=== PATIENT | female | born 1950 | race American Indian/Alaskan Native ===

== ENCOUNTER 2016-05-06 13:14 | Inpatient (IN) | payer MEDICARE ==
[2016-05-06 14:22] LABS: Basophils % (Auto) 0.4 % (0.0-1.8); Eosinophils % (Auto) 0.5 % (0.0-4.3); Hematocrit 31.5 % (30.3-42.9); Hemoglobin 10.7 gm/dl (10.1-14.3); Mean Corpuscular HGB Conc 34 % (30-34); Mean Corpuscular Hemoglobin 28 pg (28-32); Mean Corpuscular Volume 83 fl (79-97); Platelet Count 313 K/mm3 (140-440); Red Blood Count 3.81 M/mm3 (3.65-5.03); Red Cell Distribution Width 14.7 % (13.2-15.2); White Blood Count 11.7 K/mm3 (4.5-11.0)
[2016-05-06 14:39] LABS: Anion Gap 22 mmol/L; BUN/Creatinine Ratio 17.77; Blood Urea Nitrogen 16 mg/dL (7-17); Calcium 9.2 mg/dL (8.4-10.2); Carbon Dioxide 19 mmol/L (22-30); Chloride 97.2 mmol/L (98-107); Glucose 101 mg/dL (65-100); Potassium 3.5 mmol/L (3.6-5.0); Sodium 135 mmol/L (137-145)
[2016-05-06 15:19] LABS: Cholesterol 207 mg/dL (50-199); HDL Cholesterol 78 mg/dL (40-59); LDL Cholesterol,Direct 113 mg/dL (50-130); Triglycerides 82 mg/dL (2-149)
[2016-05-06] MEDS ORDERED: ASPIRIN PO ONE (15:23)
--- NOTE | 2016-05-06 16:02 | Emergency Department Report ---
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 According to her she was out for approximately 30 seconds. Patient states she had a tightness in her chest and felt lightheaded prior to and just after her syncopal episode. Patient states the chest pain improved in route to the hospital and has since resolved. Patient did take her blood pressure medicine this morning. Patient states she had the flu several months ago and occasionally has congested nose but denies fever, nausea, vomiting, diarrhea or cough patient states over the last several days she's had exertional chest tightness patient also states she's been taking shots for her weight loss of Forskolin. Mode of arrival: [EMS] Source: [Patient] and patient's Began: Occurred prior to admission Duration: Approximately 30 seconds Context: See above Quality: See above Severity: Currently 0 out of 10 Improved with: See above Worsened with: See above Associated signs and symptoms: See above. No recent surgery or travel ED Past Medical Hx - Past Medical History Previous Medical History?: Yes Hx Hypertension: Yes - Surgical History Past Surgical History?: No - Social History Smoking Status: Never Smoker Substance Use Type: None - Medications Home Medications: Home Medications Medication Instructions Recorded Confirmed Last Taken Type Losartan/Hydrochlorothiazide 1 each PO QDAY 05/06/16 05/06/16 Unknown History [Losartan-Hctz 100-25 mg Tab] amLODIPine [Norvasc] 10 mg PO DAILY 05/06/16 05/06/16 Unknown History ED Review of Systems ROS: Stated complaint: SYNCOPE Other details as noted in HPI ROS Constitutional: No fever ENT: No uri symptoms Cardiovascular: chest pain Respiratory: No sob or cough GI: No nausea vomiting or diarrhea : No dysuria frequency or urgency, Skin: No rash Neuro: No focal weakness or numbness Psych: No depression Aditya/lymph: No edema Physical Exam - Physical Exam Vital Signs: Vital Signs 05/06/16 05/06/16 05/06/16 13:33 13:40 14:00 Temperature 98.1 F Pulse Rate 73 79 71 Respiratory 13 16 10 L Rate Blood Pressure 107/66 107/62 111/65 O2 Sat by Pulse 99 Oximetry 05/06/16 05/06/16 14:30 14:40 Temperature Pulse Rate 78 Respiratory 9 L 16 Rate Blood Pressure 112/70 O2 Sat by Pulse Oximetry Physical Exam: GENERAL: The patient is well-developed well-nourished . HEENT: Normocephalic. Atraumatic. Extraocular motions are intact. Patient has moist mucous membranes. NECK: Supple. No meningitic signs are noted. There is no adenopathy noted. CHEST/LUNGS: Clear to auscultation. There is no respiratory distress noted. HEART/CARDIOVASCULAR: Regular. There is no tachycardia. There is no gallop rub or murmur. ABDOMEN: Abdomen is soft, nontender. Patient has normal bowel sounds. There is no abdominal distention. SKIN: There is no rash. There is no edema. There is no diaphoresis. NEURO: The patient is awake, alert, and oriented. The patient is cooperative. The patient has no focal neurologic deficits. The patient has normal speech. MUSCULOSKELETAL: There is no tenderness or deformity. There is no limitation range of motion. There is no evidence of acute injury. ED Course Vital Signs 05/06/16 05/06/16 05/06/16 13:33 13:40 14:00 Temperature 98.1 F Pulse Rate 73 79 71 Respiratory 13 16 10 L Rate Blood Pressure 107/66 107/62 111/65 O2 Sat by Pulse 99 Oximetry 05/06/16 05/06/16 14:30 14:40 Temperature Pulse Rate 78 Respiratory 9 L 16 Rate Blood Pressure 112/70 O2 Sat by Pulse Oximetry ED Medical Decision Making - Lab Data Result diagrams: 05/06/16 14:06 05/06/16 14:06 Laboratory Tests 05/06/16 14:06 Calcium 9.2 Troponin T 0.048 H Triglycerides 82 Cholesterol 207 H LDL Cholesterol Direct 113 HDL Cholesterol 78 H Cholesterol/HDL Ratio 2.65 Laboratory Tests 05/06/16 15:41 D-Dimer 191.14 - EKG Data -: EKG Interpreted by Me (inferior Q waves and poor initial anterior forces) EKG shows normal: sinus rhythm Rate: normal (74) - EKG Data When compared to previous EKG there are: previous EKG unavailable - Radiology Data interpreted by me: Chest x-ray shows no acute process Critical care attestation.: If time is entered above; I have spent that time in minutes in the direct care of this critically ill patient, excluding procedure time. ED Disposition Clinical Impression: Syncope Qualifiers: Syncope type: unspecified Qualified Code(s): R55 - Syncope and collapse Chest pain Qualifiers: Chest pain type: unspecified Qualified Code(s): R07.9 - Chest pain, unspecified Disposition: OP ADMITTED IP TO THIS HOSP Is pt being admited?: Yes Does the pt Need Aspirin: Yes Condition: Fair Instructions: Syncope (ED), Chest Pain (ED) Referrals: PRIMARY CARE, [Primary Care Provider] - 3-5 Days Time of Disposition: 16:05 (admit to the hospitalist)
[2016-05-06] MEDS ORDERED: DULCOLAX PR PRN (16:34)
[2016-05-06] MEDS ORDERED: MILK OF MAGNESIA PO PRN (16:34)
[2016-05-06] MEDS ORDERED: TYLENOL PO PRN (16:34)
[2016-05-06] MEDS ORDERED: MORPHINE IV PRN (16:34)
[2016-05-06] MEDS ORDERED: ZOFRAN IV PRN (16:34)
[2016-05-06] MEDS ORDERED: NON-FORMULARY (Losartan/Hydrochlorothiazide [Losartan-Hctz 100-25 Mg Tab] 1 EACH) PO SCH (16:45)
--- NOTE | 2016-05-06 16:48 | History and Physical Report ---
History of Present Illness Date of examination: 05/06/16 History of present illness: 65-year-old female with history of hypertension presents to the hospital with chest pain which she stated started while in [employer]. Patient described chest pain as a pressure sensation about a 6 out of 10. Pain would come and go no alleviating or aggravating factors. Patient denied any palpitation or shortness of breath. No fever no chills. No nausea vomiting. No numbness in the left arm. At the time of exam patient was chest pain-free. Patient denied any syncopal episode Past History Past Medical History: hypertension Medications and Allergies Allergies Allergy/AdvReac Type Severity Reaction Status Date / Time No Known Allergies Allergy Unverified 05/06/16 13:40 Home Medications Medication Instructions Recorded Confirmed Last Taken Type Losartan/Hydrochlorothiazide 1 each PO QDAY 05/06/16 05/06/16 Unknown History [Losartan-Hctz 100-25 mg Tab] amLODIPine [Norvasc] 10 mg PO DAILY 05/06/16 05/06/16 Unknown History Active Meds: Active Medications Hydrochlorothiazide (Hctz) 25 mg PO QDAY BRUNA Losartan Potassium (Cozaar) 100 mg PO QDAY [facility] Review of Systems Cardiovascular: chest pain Exam - Constitutional Vitals: Temp Pulse Resp BP Pulse Ox 98.1 F 78 16 112/70 99 05/06/16 13:40 05/06/16 14:30 05/06/16 14:40 05/06/16 14:30 05/06/16 13:40 General appearance: Present: no acute distress - EENT Eyes: Present: PERRL, EOM intact ENT: hearing intact, clear oral mucosa, dentition normal - Neck Neck: Present: supple, normal ROM - Respiratory Respiratory effort: normal Respiratory: bilateral: CTA - Cardiovascular Rhythm: regular Heart Sounds: Present: S1 & S2 - Extremities Extremities: no ischemia, No edema - Abdominal General gastrointestinal: Present: soft, non-tender, non-distended, normal bowel sounds - Musculoskeletal Musculoskeletal: strength equal bilaterally - Psychiatric Psychiatric: appropriate mood/affect, intact judgment & insight - Neurologic Neurologic: CNII-XII intact, moves all extremities Results - Labs CBC & Chem 7: 05/06/16 14:06 05/06/16 14:06 Labs: Laboratory Last Values WBC 11.7 K/mm3 (4.5-11.0) H 05/06/16 14:06 RBC 3.81 M/mm3 (3.65-5.03) 05/06/16 14:06 Hgb 10.7 gm/dl (10.1-14.3) 05/06/16 14:06 Hct 31.5 % (30.3-42.9) 05/06/16 14:06 MCV 83 fl (79-97) 05/06/16 14:06 MCH 28 pg (28-32) 05/06/16 14:06 MCHC 34 % (30-34) 05/06/16 14:06 RDW 14.7 % (13.2-15.2) 05/06/16 14:06 Plt Count 313 K/mm3 (140-440) 05/06/16 14:06 Lymph % (Auto) 19.1 % (13.4-35.0) 05/06/16 14:06 Mineral % (Auto) 5.6 % (0.0-7.3) 05/06/16 14:06 Eos % (Auto) 0.5 % (0.0-4.3) 05/06/16 14:06 Baso % (Auto) 0.4 % (0.0-1.8) 05/06/16 14:06 Lymph # 2.2 K/mm3 (1.2-5.4) 05/06/16 14:06 Mineral # 0.7 K/mm3 (0.0-0.8) 05/06/16 14:06 Eos # 0.1 K/mm3 (0.0-0.4) 05/06/16 14:06 Baso # 0.0 K/mm3 (0.0-0.1) 05/06/16 14:06 Seg Neutrophils % 74.4 % (40.0-70.0) H 05/06/16 14:06 Seg Neutrophils # 8.7 K/mm3 (1.8-7.7) H 05/06/16 14:06 D-Dimer 191.14 ng/mlDDU (0-234) 05/06/16 15:41 Sodium 135 mmol/L (137-145) L 05/06/16 14:06 Potassium 3.5 mmol/L (3.6-5.0) L 05/06/16 14:06 Chloride 97.2 mmol/L (98-107) L 05/06/16 14:06 Carbon Dioxide 19 mmol/L (22-30) L 05/06/16 14:06 Anion Gap 22 mmol/L 05/06/16 14:06 BUN 16 mg/dL (7-17) 05/06/16 14:06 Creatinine 0.9 mg/dL (0.7-1.2) 05/06/16 14:06 Estimated GFR > 60 ml/min 05/06/16 14:06 BUN/Creatinine Ratio 17.77 % 05/06/16 14:06 Glucose 101 mg/dL (65-100) H 05/06/16 14:06 Calcium 9.2 mg/dL (8.4-10.2) 05/06/16 14:06 Troponin T 0.048 ng/mL (0.00-0.029) H 05/06/16 14:06 Triglycerides 82 mg/dL (2-149) 05/06/16 14:06 Cholesterol 207 mg/dL (50-199) H 05/06/16 14:06 LDL Cholesterol Direct 113 mg/dL (50-130) 05/06/16 14:06 HDL Cholesterol 78 mg/dL (40-59) H 05/06/16 14:06 Cholesterol/HDL Ratio 2.65 % 05/06/16 14:06 Assessment and Plan - Patient Problems (1) Hypertension Current Visit: Yes Status: Acute Qualifiers: Hypertension type: H Plan to address problem: Patient is continued on hypertensive meds. Blood pressure is well controlled (2) Chest pain Current Visit: Yes Status: Acute Qualifiers: Chest pain type: unspecified Qualified Code(s): R07.9 - Chest pain, unspecified Plan to address problem: Patient will be admitted to telemetry for chest pain with elevated troponin. We 'll start on heparin drip, beta blockers, aspirin, will get 2-D echo. We'll get cardiology consultation. We'll continue to monitor on the monitoring analyst. Patient is chest pain-free at the time of exam. We'll get Lexiscan stress test
[2016-05-06] MEDS: COZAAR PO SCH (16:51)
[2016-05-06] MEDS: HCTZ PO SCH (16:51)
[2016-05-06] MEDS ORDERED: NACL 0.9% 1000 ML 1,000 ML IV SCH (17:00)
[2016-05-06] MEDS ORDERED: HEPARIN/ 0.45% NACL-25,000 UNIT/500 ML 25,000 UNIT/500 ML BAG IV SCH (17:00)
[2016-05-06] MEDS ORDERED: HEPARIN 10,000 UNITS/10 ML IV ONE (17:25)
[2016-05-06 17:37] LABS: INR 0.97 (0.87-1.13)
[2016-05-06] MEDS: HEPARIN/ 0.45% NACL-25,000 UNIT/500 ML 25,000 UNIT/500 ML BAG IV SCH (17:42)
[2016-05-06 21:08] LABS: Hematocrit 36.2 % (30.3-42.9)
[2016-05-06 21:16] LABS: Creatine Kinase MB 3.5 ng/mL (0.0-4.0)
[2016-05-06 21:36] LABS: Partial Thromboplastin Time < 20.0 Sec. (24.2-36.6)
[2016-05-06 22:14] LABS: INR TNR (0.87-1.13)
[2016-05-06] MEDS: LOPRESSOR PO SCH (22:58)
[2016-05-06 23:45] LABS: Creatine Kinase MB 3.3 ng/mL (0.0-4.0)
[2016-05-06 23:50] LABS: INR 1.04 (0.87-1.13)
[2016-05-06 23:56] LABS: Partial Thromboplastin Time 81.1 Sec. (24.2-36.6)
[2016-05-07 05:30] LABS: Basophils % (Auto) 0.6 % (0.0-1.8); Eosinophils % (Auto) 2.6 % (0.0-4.3); Hematocrit 32.3 % (30.3-42.9); Hemoglobin 11.2 gm/dl (10.1-14.3); Mean Corpuscular HGB Conc 35 % (30-34); Mean Corpuscular Hemoglobin 29 pg (28-32); Mean Corpuscular Volume 83 fl (79-97); Platelet Count 337 K/mm3 (140-440); Red Blood Count 3.87 M/mm3 (3.65-5.03); Red Cell Distribution Width 14.7 % (13.2-15.2); White Blood Count 9.2 K/mm3 (4.5-11.0)
[2016-05-07 05:43] LABS: INR 1.06 (0.87-1.13)
[2016-05-07 06:01] LABS: Alanine Aminotransferase 10 units/L (7-56); Albumin 3.9 g/dL (3.9-5); Albumin/Globulin Ratio 1.4 %; Alkaline Phosphatase 58 units/L (35-129); BUN/Creatinine Ratio 21.42; Bilirubin,Total 0.7 mg/dL (0.1-1.2); Blood Urea Nitrogen 15 mg/dL (7-17); Calcium 9.1 mg/dL (8.4-10.2); Carbon Dioxide 26 mmol/L (22-30); Chloride 99.4 mmol/L (98-107); Glucose 100 mg/dL (65-100); Potassium 3.5 mmol/L (3.6-5.0); Sodium 140 mmol/L (137-145); Total Protein 6.7 g/dL (6.3-8.2)
[2016-05-07 06:03] LABS: Anion Gap 18 mmol/L
--- NOTE | 2016-05-07 07:37 | XRay Report ---
AP chest History: Shortness of breath. Findings: No comparison. Minor linear scarring or atelectasis is identified at the left lung base. Otherwise, the lungs are clear. No pleural effusion or pneumothorax. Normal heart and mediastinal structures. Normal bony thorax. Impression: No acute cardiopulmonary process identified.
[2016-05-07] MEDS ORDERED: LEXISCAN IV ONE (08:56)
[2016-05-07] MEDS: LOPRESSOR PO SCH ×2 (10:00→21:33)
[2016-05-07] MEDS: HCTZ PO SCH (10:00)
[2016-05-07] MEDS: COZAAR PO SCH (10:00)
[2016-05-07] MEDS ORDERED: ASPIRIN PO SCH (10:00)
--- NOTE | 2016-05-07 12:17 | Admit Criteria Form ---
Admission Criteria Documentation: CHEST PAIN Clinical Indications for Admission to Inpatient Care (Place 'X' for any and all applicable criteria): Admission is indicated for chest pain and ANY ONE of the following(1)(2)(3)(4)(5 ): [X]I. Angina with acute coronary syndrome (Also use Myocardial Infarction or Angina guideline) [ ]II. Hemodynamic instability [ ]III. Angina needing acute intervention as indicated by ALL of the following( 11)(12): [ ]a) Unstable angina is present as indicated by angina that is ANY ONE of the following: [ ]i) New onset [ ]ii) Nocturnal [ ]iii) Prolonged at rest [ ]iv) Progressive [ ]b) Angina warrants acute intervention as indicated by ANY ONE of the following: [ ]i) Recurrent angina (e.g, not responding as previously to treatment) [ ]ii) Angina at rest or with low-level activities despite initial medical therapy [ ]iii) New or presumably new ST-segment depression on ECG [ ]iv) Signs or symptoms of heart failure (eg, dyspnea, pulmonary edema) [ ]v) New or worsening mitral regurgitation [ ]vi) Hemodynamic instability [ ]vii) Dangerous arrhythmia (eg, sustained ventricular tachycardia) [ ]viii) History of percutaneous coronary intervention within 6 months [ ]ix) History of coronary artery bypass graft surgery [ ]x) VIKAS risk score of 2 or greater[A] [ ]xi) History of Diabetes(14) [ ]xii) High-risk cardiac ischemia findings on noninvasive testing (e.g, echocardiogram, treadmill testing, nuclear scan) [ ]xiii) Chronic renal insufficiency (ie, estimated GFR less than 60 mL/min/1.732m) [ ]xiv) Left ventricular ejection fraction less than 40% [X]IV. Evidence of OR (eg, cardiac biomarkers positive, ST-segment elevation on ECG) also use Myocardial Infarction Criteria Form. [ ]V. Pulmonary edema [ ]. Respiratory distress [ ]VII. Chest pain indicative of serious diagnosis other than coronary artery disease (eg, aortic dissection) [ ]VIII. Contraindications and/or Inappropriate clinical situations for Observational Care in patients with Chest Pain, when ANY ONE of the following is required: [ ]a) Patient with risk factor for pulmonary embolism, acute coronary syndrome and myocardial infarction (18) [ ]b) Patient with Pulmonary embolism require an average LOS of 4.3 days, therefore emergency department observation management is inappropriate 18,23 [ ]c) Painful condition/s in the elderly, have the highest rate of recidivism after emergency department observation management (10.8%) 20,21,22 [ ]d) Elevated cardiac biomarker requires intensive and exhaustive care (19) [ ]IX. General contraindications and/or Inappropriate clinical situations for Observational Care in patients with Chest Pain, when ANY ONE of the following is required: [ ]a) Prediction of prolongation of LOS based on ANY ONE of the following may be considered as a contraindication for observational care 2, 3, 4, 5, 6, 7, 8, 9, 10, 11 [ ]i) Age > 65 yrs. [ ]ii) Patient arriving by ambulance [ ]iii) Patient with high acuity [ ]iv) Patient requiring vital sign monitoring [ ]v) Patient on IV medication [ ]b) Systolic blood pressures 180mmHg 3,12 [ ]c) Patient with altered mental status including delirium and other alteration of consciousness, (3) [ ]d) Patient whose discharge disposition will be to a [place] [facility] home or rehabilitation home should not be managed in Emergency Department Observation Unit. CMS rule requires 3 days hospital stay before such placement. 3,13 [ ]e) Patient with failure to thrive due to broad array of etiologies 3,16,17 [ ]f) Inability to ambulate 3,14 Extended stay beyond goal length of stay may be needed for (1)(28): [ ]a) Specific condition diagnosed after evaluation (eg, pulmonary embolism, aortic dissection) [ ]b) Unstable angina [ ]c) Continued suspicion of acute coronary syndrome with inability to complete needed cardiac evaluation (eg, patient clinically unable to undergo stress testing) [ ]d) Myocardial infarction (Contents from ANGINA and CHEST PAIN clinical indications for admission to inpatient care have been integrated in this form) The original [employer] [facility], 1928–1983[employer] content created by [employer] has been revised. The portions of the content which have been revised are identified through the use of italic text or in bold, and [employer] [facility], 1928–1983[employer] has neither reviewed nor approved the modified material. All other unmodified content is copyright [employer] [facility], 1928–1983[employer]. Please see references footnoted in the original [employer] [facility], 1928–1983[employer] edition 2016 Admission Criteria Met: Yes
--- NOTE | 2016-05-07 13:49 | Treadmill Report ---
THALLIUM STRESS TEST LEFT VENTRICLE: Left ventricular chamber size is within normal. Perfusion study demonstrates homogeneous uptake of the tracer in all segments. No significant perfusion defects identified. Gated analysis demonstrates normal left ventricular systolic function, ejection fraction greater than 70%. CONCLUSION: Normal myocardial perfusion study. JOB# [id number] CA/NTS
--- NOTE | 2016-05-07 14:09 | Consultation ---
History of Present Illness Consult date: 05/07/16 Consult reason: syncope History of present illness: 65-year-old woman, no prior cardiac history, who presented to the hospital with syncope. Syncope was transient, lasting a few seconds, and occurred while the patient was in [employer]. There was no chest pain or palpitations prior to the syncope, although she complained of some chest "tightness". There was marked diaphoresis and a sensation of feeling "hot" all over. Her 12-lead EKG on contact with the medical system was normal sinus rhythm, normal ECG. Cardiac enzymes have been unremarkable. Today, she underwent a Persantine thallium stress test, which was normal. Echocardiogram shows normal left ventricle systolic function with ejection fraction 55-60%. The patient has no history of coronary artery disease, and is very active physically has never had exertional chest pain or dyspnea. Past History Past Medical History: hypertension Medications and Allergies Allergies Allergy/AdvReac Type Severity Reaction Status Date / Time No Known Allergies Allergy Unverified 05/06/16 13:40 Home Medications Medication Instructions Recorded Confirmed Last Taken Type Losartan/Hydrochlorothiazide 1 each PO QDAY 05/06/16 05/06/16 Unknown History [Losartan-Hctz 100-25 mg Tab] amLODIPine [Norvasc] 10 mg PO DAILY 05/06/16 05/06/16 Unknown History Active Meds: Active Medications Acetaminophen (Tylenol) 650 mg PO Q4H PRN PRN Reason: Pain MILD(1-3)/Fever >100.5/BERNABE Aspirin (Aspirin) 325 mg PO QDAY [facility] Last Admin: 05/07/16 10:00 Dose: Not Given Bisacodyl (Dulcolax) 10 mg MT QDAY PRN PRN Reason: Constipation unrelieved by MOM Hydrochlorothiazide (Hctz) 25 mg PO QDAY [facility] Last Admin: 05/07/16 10:00 Dose: Not Given Sodium Chloride (Nacl 0.9% 1000 Ml) 1,000 mls @ 125 mls/hr IV DIRECT BRUNA Heparin Sodium/Sodium Chloride (Heparin/ 0.45% Nacl-25,000 Unit/500 Ml) 25,000 unit in 500 mls @ 20 mls/hr IV TITRATE BRUNA; 1,000 UNITS/HR PRN Reason: Protocol Last Titration: 05/07/16 00:36 Dose: 1,000 units/hr, 20 mls/hr Losartan Potassium (Cozaar) 100 mg PO QDAY [facility] Last Admin: 05/07/16 10:00 Dose: Not Given Magnesium Hydroxide (Milk Of Magnesia) 30 ml PO Q4H PRN PRN Reason: Constipation Metoprolol Tartrate (Lopressor) 12.5 mg PO BID [facility] Last Admin: 05/07/16 10:00 Dose: Not Given Morphine Sulfate (Morphine) 2 mg IV Q4H PRN PRN Reason: Pain, Moderate (4-6) Ondansetron HCl (Zofran) 4 mg IV Q8H PRN PRN Reason: N/V unrelieved by Reglan Review of Systems Cardiovascular: chest pain, syncope, no orthopnea, no palpitations, no rapid/ irregular heart beat, no edema, no lightheadedness, no shortness of breath Physical Examination Vital Signs Pulse Resp BP 73 13 107/66 05/06/16 13:33 05/06/16 13:33 05/06/16 13:33 General appearance: no acute distress HEENT: Positive: PERRL Neck: Positive: neck supple Cardiac: Positive: Reg Rate and Rhythm Lungs: Positive: clear to auscultation Neuro: Positive: Grossly Intact Abdomen: Positive: Soft Female genitourinary: deferred Skin: Positive: Clear Extremities: Absent: edema Results 05/07/16 04:58 05/07/16 04:58 Cardiac Enzymes 05/06/16 05/06/16 05/07/16 Range/Units 20:17 22:59 04:58 AST 16 (5-40) units/L CK-MB (CK-2) 3.5 3.3 (0.0-4.0) ng/mL Coagulation 05/06/16 05/06/16 05/06/16 Range/Units 16:36 20:17 22:59 PT 12.8 82.8 H 13.5 (12.2-14.9) Sec. INR 0.97 TNR 1.04 (0.87-1.13) APTT 25.0 < 20.0 L 81.1 H* (24.2-36.6) Sec. 05/07/16 Range/Units 04:58 PT 13.7 (12.2-14.9) Sec. INR 1.06 (0.87-1.13) APTT (24.2-36.6) Sec. CBC 05/06/16 05/07/16 Range/Units 20:17 04:58 WBC 9.2 (4.5-11.0) K/mm3 RBC 3.87 (3.65-5.03) M/mm3 Hgb 12.0 11.2 (10.1-14.3) gm/dl Hct 36.2 32.3 (30.3-42.9) % Plt Count 370 337 (140-440) K/mm3 Lymph # 4.4 (1.2-5.4) K/mm3 Butler # 0.7 (0.0-0.8) K/mm3 Eos # 0.2 (0.0-0.4) K/mm3 Baso # 0.1 (0.0-0.1) K/mm3 Comprehensive Metabolic Panel 05/07/16 Range/Units 04:58 Sodium 140 (137-145) mmol/L Potassium 3.5 L (3.6-5.0) mmol/L Chloride 99.4 (98-107) mmol/L Carbon Dioxide 26 D (22-30) mmol/L BUN 15 (7-17) mg/dL Creatinine 0.7 (0.7-1.2) mg/dL Glucose 100 (65-100) mg/dL Calcium 9.1 (8.4-10.2) mg/dL AST 16 (5-40) units/L ALT 10 (7-56) units/L Alkaline Phosphatase 58 (35-129) units/L Total Protein 6.7 (6.3-8.2) g/dL Albumin 3.9 (3.9-5) g/dL EKG interpretations - Telemetry EKG Rhythm: Sinus Rhythm Assessment and Plan - Patient Problems (1) Syncope Current Visit: Yes Status: Acute Qualifiers: Syncope type: unspecified Encounter type: E Qualified Code(s): R55 - Syncope and collapse Plan to address problem: Syncope by her history and presentation appears vasovagal. Cardiac workup with EKGs, serial enzymes, stress test and echocardiogram are all normal. No further cardiac workup is indicated, recommend consideration of a CT of the chest PE protocol prior to discharge.
--- NOTE | 2016-05-07 17:19 | Discharge Summary ---
Providers - Providers Date of Admission: 05/06/16 16:34 Attending physician: GIORGIO MUÑOZ Primary care physician: DOMITILA LE MD Hospitalization Condition: Fair Disposition: STILL A PATIENT Core Measure Documentation - Palliative Care Palliative Care/ Comfort Measures: Not Applicable Exam - Constitutional Vitals: Temp Pulse Resp BP Pulse Ox 97.5 F L 87 20 95/83 97 05/07/16 05:56 05/07/16 10:23 05/07/16 05:56 05/07/16 10:23 05/07/16 05:56 Plan Follow up with: DOMITILA LE MD [Primary Care Provider] - 3-5 Days
[2016-05-07] MEDS: HEPARIN/ 0.45% NACL-25,000 UNIT/500 ML 25,000 UNIT/500 ML BAG IV SCH (17:30)
[2016-05-07] MEDS ORDERED: NACL ONE (20:02)
--- NOTE | 2016-05-07 21:15 | Cat Scan Report ---
FINAL REPORT EXAM: CT ANGIO CHEST HISTORY: PE protocol,CP, SOB TECHNIQUE: Serial axial images through the chest during intravenous administration 100 milliliters Omnipaque 350 contrast with coronal, sagittal and oblique reconstruction PRIORS: None. FINDINGS: There atelectasis in the dependent portion of the lungs, bilaterally. No pleural effusion is seen. No abnormal mass or adenopathy is identified. The heart measures approximately 12 centimeters in length. No abnormal filling defects are identified in the pulmonary arteries. Multiple hypodense foci are seen in the hepatic parenchyma which are too small to definitely characterize. Degenerative changes are seen in the spine. IMPRESSION: 1. No definite acute pulmonary embolism is identified. 2. There atelectasis in the dependent portion of the lungs. Possibility of superimposed infection is not excluded. 3. Hypodense foci are seen in the hepatic parenchyma. These are too small to definitely characterize.
[2016-05-08 05:38] LABS: Hemoglobin 11.7 gm/dl (10.1-14.3)
--- NOTE | 2016-05-08 06:31 | Progress Note ---
Assessment and Plan - Patient Problems (1) Chest pain Current Visit: Yes Status: Acute Qualifiers: Chest pain type: unspecified Qualified Code(s): R07.9 - Chest pain, unspecified Plan to address problem: Chest pain protocol, serial cardiac enzymes, ekg, telemetry, Echo/Stress test normal. Pending CTA chest prior to discharge. (2) Hypertension Current Visit: Yes Status: Acute Qualifiers: Hypertension type: H Plan to address problem: continue current therapy,monitor bp q shift. (3) DVT prophylaxis Current Visit: Yes Status: Acute History Interval history: Pt resting in bed, after stress test. Pt counseled regarding cessation of dietary supplements. Pt family at bedside. No reported nursing events. Pt to be discharged home after CT angio chest. Discussed plan of care with nurse. Hospitalist Physical - Constitutional Vitals: Temp Pulse Resp BP Pulse Ox 97.9 F 55 L 18 106/59 99 05/08/16 04:05 05/08/16 06:17 05/08/16 04:05 05/08/16 04:05 05/08/16 04:05 General appearance: Present: no acute distress - EENT Eyes: Present: PERRL, EOM intact ENT: hearing intact - Neck Neck: Present: supple - Respiratory Respiratory effort: normal Respiratory: bilateral: CTA - Cardiovascular Rhythm: regular Heart Sounds: Present: S1 & S2 - Extremities Extremities: no ischemia Peripheral Pulses: within normal limits - Abdominal General gastrointestinal: soft, non-tender, non-distended, no hepatomegaly, no splenomegaly - Integumentary Integumentary: Present: clear, warm, dry - Psychiatric Psychiatric: appropriate mood/affect, cooperative - Neurologic Neurologic: CNII-XII intact, no focal deficits, moves all extremities, gait normal Results - Labs CBC & Chem 7: 05/08/16 05:08 05/07/16 04:58 Labs: Laboratory Last Values WBC 9.2 K/mm3 (4.5-11.0) 05/07/16 04:58 RBC 3.87 M/mm3 (3.65-5.03) 05/07/16 04:58 Hgb 11.7 gm/dl (10.1-14.3) 05/08/16 05:08 Hct 34.0 % (30.3-42.9) 05/08/16 05:08 MCV 83 fl (79-97) 05/07/16 04:58 MCH 29 pg (28-32) 05/07/16 04:58 MCHC 35 % (30-34) H 05/07/16 04:58 RDW 14.7 % (13.2-15.2) 05/07/16 04:58 Plt Count 338 K/mm3 (140-440) 05/08/16 05:08 Lymph % (Auto) 47.8 % (13.4-35.0) H 05/07/16 04:58 Cecil % (Auto) 7.7 % (0.0-7.3) H 05/07/16 04:58 Eos % (Auto) 2.6 % (0.0-4.3) 05/07/16 04:58 Baso % (Auto) 0.6 % (0.0-1.8) 05/07/16 04:58 Lymph # 4.4 K/mm3 (1.2-5.4) 05/07/16 04:58 Cecil # 0.7 K/mm3 (0.0-0.8) 05/07/16 04:58 Eos # 0.2 K/mm3 (0.0-0.4) 05/07/16 04:58 Baso # 0.1 K/mm3 (0.0-0.1) 05/07/16 04:58 Seg Neutrophils % 41.3 % (40.0-70.0) 05/07/16 04:58 Seg Neutrophils # 3.8 K/mm3 (1.8-7.7) 05/07/16 04:58 PT 13.7 Sec. (12.2-14.9) 05/07/16 04:58 INR 1.06 (0.87-1.13) 05/07/16 04:58 APTT 81.1 Sec. (24.2-36.6) H* 05/06/16 22:59 D-Dimer 191.14 ng/mlDDU (0-234) 05/06/16 15:41 Heparin Anti-Xa Level 0.51 U.I./ml (0.3-0.7) 05/07/16 19:44 Sodium 140 mmol/L (137-145) 05/07/16 04:58 Potassium 3.5 mmol/L (3.6-5.0) L 02/20/17 04:58 Chloride 99.4 mmol/L (98-107) 05/07/16 04:58 Carbon Dioxide 26 mmol/L (22-30) D 05/07/16 04:58 Anion Gap 18 mmol/L 05/07/16 04:58 BUN 15 mg/dL (7-17) 05/07/16 04:58 Creatinine 0.7 mg/dL (0.7-1.2) 05/07/16 04:58 Estimated GFR > 60 ml/min 05/07/16 04:58 BUN/Creatinine Ratio 21.42 % 05/07/16 04:58 Glucose 100 mg/dL (65-100) 05/07/16 04:58 Calcium 9.1 mg/dL (8.4-10.2) 05/07/16 04:58 Total Bilirubin 0.7 mg/dL (0.1-1.2) 05/07/16 04:58 AST 16 units/L (5-40) 05/07/16 04:58 ALT 10 units/L (7-56) 05/07/16 04:58 Alkaline Phosphatase 58 units/L (35-129) 05/07/16 04:58 Total Creatine Kinase 73 units/L (30-135) 05/06/16 22:59 CK-MB (CK-2) 3.3 ng/mL (0.0-4.0) 05/06/16 22:59 CK-MB (CK-2) Rel Index 4.5 (0-4) H 05/06/16 22:59 Troponin T 0.057 ng/mL (0.00-0.029) H D 05/06/16 22:59 Total Protein 6.7 g/dL (6.3-8.2) 05/07/16 04:58 Albumin 3.9 g/dL (3.9-5) 05/07/16 04:58 Albumin/Globulin Ratio 1.4 % 05/07/16 04:58 Triglycerides 82 mg/dL (2-149) 05/06/16 14:06 Cholesterol 207 mg/dL (50-199) H 05/06/16 14:06 LDL Cholesterol Direct 113 mg/dL (50-130) 05/06/16 14:06 HDL Cholesterol 78 mg/dL (40-59) H 05/06/16 14:06 Cholesterol/HDL Ratio 2.65 % 05/06/16 14:06
--- NOTE | 2016-05-08 10:46 | Discharge Summary ---
Providers - Providers Date of Admission: 05/06/16 16:34 Date of discharge: 05/08/16 Attending physician: MALIK CAMACHO MD Primary care physician: [employer] REPRESENTATIVE Hospitalization Reason for admission: chest pain, syncopr Condition: Stable Hospital course: Patient was admitted for chest pain and syncope. Thallium stress test was done and normal, echo with ejection fraction of 55-60%, CTA chest normal. Patient was stable to discharge, no chest pain or syncopal episode. Cardiology was consulted and recommended no further cardiac workup. He is scheduled to see cardiology as an outpatient within 1month. Disposition: DISCHARGED TO HOME OR SELFCARE Time spent for discharge: 31 minutes - Discharge Diagnoses (1) Chest pain Status: Acute Qualifiers: Chest pain type: unspecified Qualified Code(s): R07.9 - Chest pain, unspecified (2) Syncope Status: Acute Qualifiers: Syncope type: unspecified Encounter type: E Qualified Code(s): R55 - Syncope and collapse Core Measure Documentation - Palliative Care Palliative Care/ Comfort Measures: Not Applicable - Core Measures Any of the following diagnoses?: none Exam - Physical Exam Narrative exam: Not in cardiopulmonary distress. The patient appeared well nourished and normally developed. Vital signs as documented. Head exam is unremarkable. No scleral icterus . Neck is without jugular venous distension, thyromegaly, or carotid bruits. Lungs are clear to auscultation. Cardiac exam reveals regular rate and Rhythm. First and second heart sounds normal. No murmurs, rubs or gallops. Abdominal exam reveals normal bowel sounds, no masses, no organomegaly and no aortic enlargement. Extremities are nonedematous and both femoral and pedal pulses are normal. NEMATOLOGIST: Alert and oriented 3. No focal weakness. - Constitutional Vitals: Temp Pulse Resp BP Pulse Ox 97.6 F 62 14 113/65 99 05/08/16 08:20 05/08/16 08:20 05/08/16 08:20 05/08/16 08:20 05/08/16 08:20 Plan Activity: no restrictions Diet: low cholesterol, low salt Follow up with: [facility] [Provider Group] - 7 Days KATIE BEAULIEU MD [Staff Physician] - 10 Days DOMITILA LE MD [Primary Care Provider] - 3-5 Days
--- NOTE | 2016-05-08 11:30 | Progress Note ---
Assessment and Plan Syncope, likely vasovagal Persantine thallium stress test this admission was normal. Echocardiogram shows normal left ventricle systolic function with ejection fraction 55-60%. CTA of chest reports no definite evidence of PE No further cardiac workup indicated. Stable, cardiac patrick, for discharge home. Subjective Date of service: 05/08/16 Interval history: Patient has no complaints. No cardiac events overnight. Objective Vital Signs Temp Pulse Pulse Pulse Resp BP BP 05/08/16 08:20 97.6 F 62 14 113/65 05/08/16 06:17 55 L 05/08/16 04:05 97.9 F 18 106/59 05/08/16 00:54 98.7 F 65 18 128/71 05/07/16 22:00 18 05/07/16 21:33 80 116/65 05/07/16 21:11 99.4 F 80 18 116/65 05/07/16 20:00 76 05/07/16 17:25 98.3 F 84 20 101/55 Pulse Ox 05/08/16 08:20 99 05/08/16 06:17 05/08/16 04:05 99 05/08/16 00:54 100 05/07/16 22:00 05/07/16 21:33 05/07/16 21:11 05/07/16 20:00 05/07/16 17:25 97 - Physical Examination General: No Apparent Distress HEENT: Positive: PERRL Neck: Positive: neck supple Cardiac: Positive: Reg Rate and Rhythm Lungs: Positive: Decreased Breath Sounds Neuro: Positive: Grossly Intact Extremities: Absent: edema - Labs and Meds CBC 05/08/16 Range/Units 05:08 Hgb 11.7 (10.1-14.3) gm/dl Hct 34.0 (30.3-42.9) % Plt Count 338 (140-440) K/mm3
[2016-05-08 12:52] VITALS: BP 108/62
--- NOTE | 2016-05-11 14:15 | Query- Chest Pain ---
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 Questions asked do not imply a particular answer is desired or expected. We greatly appreciate your clarification on this issue. Clinical Documentation States: 65 Y/O Female admitted on 05/06/16 with Hx. of HTN presents with chest pain 08/25 , pressure like that comes and goes with no aggravating or alleviating factors. Clinical Findings Show: Troponin: 0.048, 0.127, 0.093 CK-MB 4.5 Normal myocardial perfusion test with 55-60% EF Normal EKG Please document the etiology of Chest Pain: [ ] Myocardial Infarction [ ] Pneumonia [ ] Mediastinitis [ ] Costochondritis [ ] Pulmonary Embolism [ ] Coronary Artery Disease [ x] GERD [ ] Other: [ ] Comment/Explanation: Present on Admission: [ ] Yes (Y) [x ] Clinically undeterminable (W) [ ] No(N) Please document response in your Progress Notes and/or Discharge Summary and indicate if the condition was present on admission. TUD
== END 2016-05-08 13:10 | disposition home or self-care (01) | DRG 392 ==
LOC: ED 13:14 → 4A 16:34
PROVIDERS: ADMIT Internal Medicine; ATTEND Internal Medicine
DX: K21.9 Gastro-esophageal reflux disease without esophagitis (principal); R55 Syncope and collapse; I10 Essential (primary) hypertension; R79.89 Other specified abnormal findings of blood chemistry; Z71.3 Dietary counseling and surveillance
CPT/HCPCS: 36415; 71010; 71275; 78452; 80048; 80053; 80061; 82550; 82553; 84484; 85014; 85018; 85025; 85049; 85379; 85520; 85610; 85730; 93005; 93010; 93017; 93306; 96374; A9502; J1644; J2785; Q9967